=== PATIENT | female | born 1965 ===

== ENCOUNTER → 2024-09-11 | Outpatient (CLI) | payer BC ==
[2024-09-11 09:54] LABS: Anion Gap 4 (5-15); Carbon Dioxide 32 mmol/L (20-31); Chloride 104 mmol/L (98-107); Potassium 4.1 mmol/L (3.5-5.1); Sodium 140 mmol/L (136-145)
[2024-09-11 09:55] LABS: Calcium 9.8 mg/dL (8.7-10.4)
[2024-09-11 10:00] LABS: Blood Urea Nitrogen 11 mg/dL (9-23); Glucose 95 mg/dL (74-106); Triglycerides 69 mg/dL (< 150)
[2024-09-11 10:01] LABS: LDL Cholesterol 104 mg/dL (< 100)
[2024-09-11 10:02] LABS: Cholesterol 177 mg/dL (< 200); HDL Cholesterol 60 mg/dL (40-59)
== END | disposition home or self-care (01) ==
LOC: LAB 08:42
PROVIDERS: ATTEND Internal Medicine
DX: I10 Essential (primary) hypertension (principal); E78.5 Hyperlipidemia, unspecified; F11.21 Opioid dependence, in remission
CPT/HCPCS: 36415; 80048; 80061